=== PATIENT | female | born 1970 | race Caucasian/White ===

== ENCOUNTER 2020-04-28 16:09 | Emergency (ER) | payer BC, MEDICAID ==
[~2020-04-28] VITALS: Ht 154.9 cm; Wt 47.7 kg
[2020-04-28 16:30] VITALS: BP 142/92
== END 2020-04-28 19:34 | disposition left against medical advice (07) ==
LOC: ER 16:09
DX: M25.512 Pain in left shoulder (principal); Z53.21 Procedure and treatment not carried out due to patient leaving prior to being seen by health care provider